=== PATIENT | female | born 1995 | race Two or more races ===

== ENCOUNTER → 2016-08-07 | Outpatient (CLI) | payer OTHER ==
--- NOTE | 2016-08-07 14:02 | REP ---
Clinical: Trauma. Technique: AP, lateral, bilateral oblique views right foot. Findings: The osseous structures and joint spaces are intact and normal. There is no evidence for acute fracture or dislocation. Surrounding soft tissues are unremarkable. No subcutaneous emphysema or radiodense foreign body. Impression: Normal examination. No acute fracture or dislocation. Signed by Hubert Sibley MD 08/07/2016 01:54 P
== END ==
LOC: M LRY 13:18
PROVIDERS: ATTEND Family Medicine
DX: M79.671 Pain in right foot (principal)
CPT/HCPCS: 73630; G0463

== ENCOUNTER → 2020-04-28 | Outpatient (CLI) | payer OTHER | LOC: M LABSMTC 13:27 | PROVIDERS: ATTEND Pediatrics | DX: Z20.822 Contact with and (suspected) exposure to COVID-19 (principal) ==

== ENCOUNTER → 2020-05-03 | Outpatient (CLI) | payer SELFPAY | LOC: M LABSMTC 09:48 | PROVIDERS: ATTEND Pediatrics | DX: Z20.822 Contact with and (suspected) exposure to COVID-19 (principal) ==

== ENCOUNTER → 2020-08-30 | Outpatient (CLI) | payer SELFPAY ==
[~2020-08-30] MED LIST: OMEP-218 PO; SERT50TA29 PO
== END ==
LOC: M LABSMTC 11:26
PROVIDERS: ATTEND Anesthesiology
DX: Z20.828 Contact with and (suspected) exposure to other viral communicable diseases (principal); Z11.59 Encounter for screening for other viral diseases

== ENCOUNTER 2020-09-03 11:19 | Day surgery (SDC) | payer OTHER ==
[~2020-09-03] VITALS: Ht 170.2 cm; Wt 67.1 kg
[~2020-09-03 11:19] MED LIST changes: +LIDOCAINE 2% 100MG/5ML SDV (FOR ANES.) As Ordered ONE; +NS 1,000 ML IV ONE; +propofoL 200 MG/20 ML VIAL As Ordered ONE
[2020-09-03] MEDS ORDERED: fentaNYL 100 MCG/2 ML INJECTION (J3010) As Ordered ONE (11:55)
--- NOTE | 2020-09-03 12:16 | ROOR ---
Patient Name: Vaishali Timmons Procedure Date: 09/03/2020 11:53 AM Date of : 1995 Age: 25 Room: [facility] Gender: Female Note Status: Finalized Procedure: Upper GI endoscopy Indications: Heartburn, Suspected esophageal reflux Providers: Elmo Cary MD Referring MD: Thony Mendez DO Requesting Provider: Medicines: Monitored Anesthesia Care Complications: No immediate complications. Procedure: Pre-Anesthesia Assessment: - The heart rate, respiratory rate, oxygen saturations, blood pressure, adequacy of pulmonary ventilation, and response to care were monitored throughout the procedure. The Endoscope was introduced through the mouth, and advanced to the second part of duodenum. The upper GI endoscopy was accomplished without difficulty. The patient tolerated the procedure well. Findings: The esophagus was normal. The stomach was normal. The examined duodenum was normal. Biopsies for histology were taken with a cold forceps in the second portion of the duodenum for evaluation of celiac disease. Biopsies were taken with a cold forceps in the gastric antrum for Helicobacter pylori testing. Biopsies were taken with a cold forceps in the mid esophagus for histology. The tonsils are large. Impression: - The tonsils are large. - Normal esophagus. - Normal stomach. - Normal examined duodenum. - Biopsies were taken with a cold forceps for evaluation of celiac disease. - Biopsies were taken with a cold forceps for Helicobacter pylori testing. - Biopsies were taken with a cold forceps for histology in the mid esophagus. Recommendation: - Await pathology results. - Telephone endoscopist for pathology results in 2 weeks. - Continue present medications. Procedure Code(s): --- Professional --- 07907, Esophagogastroduodenoscopy, flexible, transoral; with biopsy, single or multiple Diagnosis Code(s): --- Professional --- R12, Heartburn CPT copyright 2019 [employer]. All rights reserved. The codes documented in this report are preliminary and upon digital communications manager review may be revised to meet current compliance requirements. Elmo Cary MD Elmo Cary MD 09/03/2020 12:15:49 PM Electronically signed by Elmo Cary MD Number of Addenda: 0 Note Initiated On: 09/03/2020 11:53 AM Estimated Blood Loss: Estimated blood loss: none.
[2020-09-03 12:35] VITALS: BP 105/69
== END 2020-09-03 12:42 | disposition home or self-care (01) ==
LOC: M OPP 11:19
PROVIDERS: ATTEND Internal Medicine Gastroenterology
DX: R12 Heartburn (principal); R11.0 Nausea; Z79.899 Other long term (current) drug therapy
CPT/HCPCS: 43239; 88305; J3010